=== PATIENT | female | born 2000 ===

== ENCOUNTER 2022-07-07 18:58 | Emergency (ER) | payer SELFPAY ==
[~2022-07-07] VITALS: Ht 170.2 cm; Wt 59.1 kg
[2022-07-07 19:03] VITALS: BP 137/79
== END 2022-07-07 20:20 | disposition left against medical advice (07) ==
LOC: ER 19:00
DX: J34.89 Other specified disorders of nose and nasal sinuses (principal); Z53.21 Procedure and treatment not carried out due to patient leaving prior to being seen by health care provider